=== PATIENT | female | born 1960 | race Caucasian/White ===

== ENCOUNTER 2019-02-02 04:37 | Emergency (ER) | payer MEDICARE ==
--- NOTE | 2019-02-02 05:25 | EDM.PDOC ---
ED HPI GENERAL MEDICAL PROBLEM - General Chief Complaint: Lower Extremity Injury/Pain Stated Complaint: LLE INJURY Time Seen by Provider: 02/02/19 05:10 Source of Information: Reports: Patient History Limitations: Reports: No Limitations - History of Present Illness INITIAL COMMENTS - FREE TEXT/NARRATIVE: States that she lost her balance when she got up to the bathroom this morning. She has pain in the lateral ankle. It is swollen on the lateral malleolus. Denies any foot pain. Onset: Sudden Location: Reports: Lower Extremity, Left Quality: Reports: Sharp Left Lower Leg Pain Score (Numeric/FACES): 5 - Related Data Allergies Allergy/AdvReac Type Severity Reaction Status Date / Time No Known Allergies Allergy Verified 02/02/19 05:06 Home Meds: Home Meds . [Unable to Verify Home Med List] 02/02/19 [History] Past Medical History Cardiovascular History: Reports: High Cholesterol, Hypertension Respiratory History: Reports: COPD Psychiatric History: Reports: Anxiety, Depression Endocrine/Metabolic History: Reports: Diabetes, Type II Social & Family History - Tobacco Use Smoking Status *Q: Current Every Day Smoker Years of Tobacco use: 40 Packs/Tins Daily: 1 - Caffeine Use Caffeine Use: Reports: Coffee - Recreational Drug Use Recreational Drug Use: No Review of Systems - Review of Systems Review Of Systems: See Below Musculoskeletal: Reports: Joint Swelling ED EXAM, GENERAL - Physical Exam Exam: See Below Extremities: Other (tender to the lateral malleolus. No tenderness to foot. good pulses distally. ) Psychiatric: Normal Affect Skin Exam: Warm, Dry, Intact Course - Vital Signs Last Recorded V/S: Last Vital Signs Temp 97.4 F 02/02/19 04:38 Pulse 85 02/02/19 04:38 Resp 20 02/02/19 04:38 BP 108/63 02/02/19 04:38 Pulse Ox 93 L 02/02/19 04:38 - Orders/Labs/Meds Orders: Active Orders 24 hr Category Date Time Status Ankle Min 3V Lt [CR] Stat Exams 02/02/19 04:51 Taken Departure - Departure Time of Disposition: 05:23 Disposition: Home, Self-Care 01 Condition: Good Clinical Impression: Ankle sprain Qualifiers: Encounter type: initial encounter Involved ligament of ankle: unspecified ligament Laterality: left Qualified Code(s): S93.402A - Sprain of unspecified ligament of left ankle, initial encounter - Discharge Information *PRESCRIPTION DRUG MONITORING PROGRAM REVIEWED*: Not Applicable *COPY OF PRESCRIPTION DRUG MONITORING REPORT IN PATIENT ALEXX: Not Applicable Instructions: Ankle Sprain Referrals: Shameka Galindo PA [Primary Care Provider] - Forms: ED Department Discharge Additional Instructions: Ice to ankle weight bearing as tolerated tylenol or advil as needed for discomfort elevate to decrease swelling - Problem List & Annotations (1) Ankle pain SNOMED Code(s): 906533173 Code(s): M25.579 - PAIN IN UNSPECIFIED ANKLE AND JOINTS OF UNSPECIFIED FOOT Status: Acute Priority: High Onset Date: 03/12/14 (2) Ankle sprain SNOMED Code(s): 05072147 Code(s): S93.409A - SPRAIN OF UNSP LIGAMENT OF UNSPECIFIED ANKLE, INIT ENCNTR Status: Acute Priority: High Qualifiers: Encounter type: initial encounter Involved ligament of ankle: unspecified ligament Laterality: left Qualified Code(s): S93.402A - Sprain of unspecified ligament of left ankle, initial encounter - Problem List Review Problem List Initiated/Reviewed/Updated: Yes - My Orders Last 24 Hours: My Active Orders 02/02/19 04:51 Ankle Min 3V Lt [CR] Stat - Assessment/Plan Last 24 Hours: My Active Orders 02/02/19 04:51 Ankle Min 3V Lt [CR] Stat
== END 2019-02-02 05:32 | disposition home or self-care (01) ==
LOC: CC.ED 04:37
DX: S93.402A Sprain of unspecified ligament of left ankle, initial encounter (principal); F17.210 Nicotine dependence, cigarettes, uncomplicated; I10 Essential (primary) hypertension; E11.9 Type 2 diabetes mellitus without complications; W19.XXXA Unspecified fall, initial encounter; Y92.002 Bathroom of unspecified non-institutional (private) residence as the place of occurrence of the external cause
CPT/HCPCS: 73610-LT; 99283; 99283-25

== ENCOUNTER 2022-01-30 16:22 | Emergency (ER) | payer MEDICARE, OTHER, MEDICAID | END 2022-01-30 18:13 | disposition home or self-care (01) | LOC: CC.ED 16:22 | DX: S63.91XA Sprain of unspecified part of right wrist and hand, initial encounter (principal); F17.210 Nicotine dependence, cigarettes, uncomplicated; I10 Essential (primary) hypertension; E11.9 Type 2 diabetes mellitus without complications; F41.9 Anxiety disorder, unspecified; F32.A Depression, unspecified; E78.00 Pure hypercholesterolemia, unspecified; W07.XXXA Fall from chair, initial encounter | CPT/HCPCS: 73110-RT; 73130-RT; 99283 ==

== ENCOUNTER 2024-07-03 12:35 | Inpatient (IN) | payer MEDICARE ==
[2024-07-03] MEDS: Naloxone 2 MG/2 ML Syringe IVPUSH ONE ×3 (12:40→14:20)
[2024-07-03] MEDS: Albuterol/Ipratropium 3.0-0.5 MG/3 ML Neb Soln NEB ONE (12:45)
[2024-07-03] MEDS: Sodium Chloride 0.9% 1,000 ML IV ONE (12:45)
[2024-07-03 12:50] LABS: BASOPHILS ABSOLUTE AUTO 0.01 10^3/uL (0.00-0.50); BASOPHILS PERCENT AUTO 0.1 % (0-1); HEMOGLOBIN 13.2 g/dL (12.0-16.0); IMMATURE GRAN ABSOLUTE AUTO 0.13 10^3/uL (0.00-0.49); IMMATURE GRAN PERCENT AUTO 1.1 % (0.0-4.9); LYMPHOCYTES ABSOLUTE AUTO 1.17 10^3/uL (0.60-5.00); LYMPHOCYTES PERCENT AUTO 9.5 % (24-44); MEAN CORPUSCULAR HEMOGLOBIN 27.8 pg (27.0-32.0); MEAN CORPUSCULAR VOLUME 92.8 fL (83.0-97.0); MONOCYTES ABSOLUTE AUTO 0.89 10^3/uL (0.00-1.50); MONOCYTES PERCENT AUTO 7.3 % (0-10); NEUTROPHILS ABSOLUTE AUTO 10.06 x10^3/uL (1.80-8.00); PLATELET COUNT,PLT 349 10^3/uL (150-400); RED BLOOD CELL COUNT 4.74 x10^6/uL (4.00-5.50); WHITE BLOOD CELL COUNT,WBC 12.3 10^3/uL (4.0-11.0)
[2024-07-03 13:18] LABS: ALANINE AMINOTRANSFERASE,ALT 61 U/L (12-78); ALBUMIN 4.1 g/dL (3.4-5.0); ALKALINE PHOSPHATASE 60 U/L (46-116); ASPARTATE AMNIOTRANSFERASE,AST 91 U/L (15-37); BILIRUBIN TOTAL 0.3 mg/dL (0.0-1.0); BLOOD UREA NITROGEN,BUN 34 mg/dL (7-18); CALCIUM 9.6 mg/dL (8.4-10.1); CARBON DIOXIDE,CO2 29 mmol/L (21-32); CHLORIDE,CL 101 mEq/L (98-106); CREATININE 1.9 mg/dL (0.6-1.0); LIPASE 29 U/L (16-77); MAGNESIUM 1.6 mg/dL (1.8-2.4); POTASSIUM,K 6.1 mEq/L (3.5-5.0); PROTEIN TOTAL,TP 7.9 g/dL (6.4-8.2); SODIUM,NA 139 mEq/L (136-145)
[2024-07-03 13:19] LABS: ESTIMATED GFR 29 mL/min (>=60); GLUCOSE RANDOM 338 mg/dL (75-99)
[2024-07-03 13:40] LABS: C-REACTIVE PROTEIN 2.39 mg/dL (<=0.50); CREATINE KINASE,CK 2658 U/L (21-215); ETHANOL BLOOD MEDICAL < 3 mg/dL (0-3)
[2024-07-03 13:43] LABS: O2 DELIVERY DEVICE NON REBR MASK; O2 SATURATION ARTERIAL 91 % (95-98); PCO2 ARTERIAL 63 mm/Hg0 (35-45); PH,ARTERIAL 7.21 (7.35-7.45); PO2 ARTERIAL 76 mm/Hg (80-100)
[2024-07-03 13:44] LABS: BASE EXCESS ARTERIAL -2.5 (-2.0-3.0); BICARBONATE,ARTERIAL 25.3 mm/L (22.0-26.0)
[2024-07-03] MEDS: Lactated Ringers 1,000 ML IV ONE ×2 (13:57→19:45)
[2024-07-03 14:05] LABS: APPEARANCE,URINE CLEAR (CLEAR); BILIRUBIN,URINE NEGATIVE (NEGATIVE); COLOR,URINE LIGHT YELLOW (YELLOW); GLUCOSE,URINE 500 mg/dL (NEGATIVE); KETONES,URINE NEGATIVE (NEGATIVE); LEUKOCYTE ESTERASE,URINE NEGATIVE (NEGATIVE); NITRITE,URINE NEGATIVE (NEGATIVE); OCCULT BLOOD,URINE SMALL (NEGATIVE); PH,URINE 5.5 (4.5-8.0); PROTEIN,URINE NEGATIVE (NEGATIVE); UROBILINOGEN,URINE 0.2 EU/dL (0.2-1.0)
[2024-07-03] MEDS: Sodium Chloride 0.9% 1,000 ML ONE (14:05)
[2024-07-03 14:07] LABS: AMPHETAMINES,URINE NEGATIVE (NEGATIVE); BARBITURATES,URINE NEGATIVE (NEGATIVE); BENZODIAZEPINE,URINE POSITIVE (NEGATIVE); MDMA (ECSTASY), URINE NEGATIVE (NEGATIVE); METHADONE,URINE NEGATIVE (NEGATIVE); METHAMPHETAMINES,URINE NEGATIVE (NEGATIVE); OPIATES,URINE POSITIVE (NEGATIVE); OXYCODONE,URINE NEGATIVE (NEGATIVE); PHENCYCLIDINE,URINE NEGATIVE (NEGATIVE); TCA,URINE NEGATIVE (NEGATIVE)
[2024-07-03 14:12] LABS: BACTERIA,URINE RARE /HPF (NOT SEEN); EPITHELIAL CELLS,URINE NOT SEEN /HPF (NOT SEEN); MUCUS,URINE RARE /HPF (NOT SEEN); RBC,URINE 0-5 /HPF (0-5); WBC,URINE 0-5 /HPF (0-5)
[2024-07-03] MEDS: Piperacillin/Tazobactam 4.5 GM in Sodium Chloride 0.9% 100 ML IV ONE (14:12)
[2024-07-03] MEDS: Albuterol/Ipratropium 3.0-0.5 MG/3 ML Neb Soln ONE (14:13)
[2024-07-03] MEDS: Albuterol 0.083% 2.5 MG/3 ML Neb Soln NEB ONE (14:33)
[2024-07-03] MEDS: methylPREDNISolone Sodium Succinate 125 MG/2 ML SDV IVPUSH STA (14:35)
[2024-07-03] MEDS: VANCOmycin 2 GM/400 ML 2 GM in Premix Bag 1 BAG IV ONE (14:42)
[2024-07-03] MEDS ORDERED: Acetaminophen 650 MG Supp RECTAL PRN (16:51)
[2024-07-03] MEDS ORDERED: Docusate Sodium 100 MG Cap PO PRN (16:51)
[2024-07-03] MEDS ORDERED: Polyethylene Glycol 3350 Powder 17 GM Packet PO PRN (16:51)
[2024-07-03] MEDS ORDERED: Ondansetron 4 MG/2 ML SDV IV PRN (16:51)
[2024-07-03] MEDS ORDERED: Acetaminophen 325 MG Tab PO PRN (16:51)
[2024-07-03] MEDS ORDERED: Ondansetron 4 MG Tab.DIS PO PRN (16:51)
[2024-07-03 18:14] LABS: O2 DELIVERY DEVICE BIPAP; PCO2 ARTERIAL 52 mm/Hg0 (35-45); PH,ARTERIAL 7.28 (7.35-7.45)
[2024-07-03 18:15] LABS: BASE EXCESS ARTERIAL -2.3 (-2.0-3.0); BICARBONATE,ARTERIAL 24.4 mm/L (22.0-26.0); O2 SATURATION ARTERIAL 79 % (95-98); PO2 ARTERIAL 49 mm/Hg (80-100)
[2024-07-03 18:24] LABS: CALCIUM 9.4 mg/dL (8.4-10.1); CREATININE 1.6 mg/dL (0.6-1.0); EST CRCL DRUG DOSING (CG) 33.25 mL/min; POTASSIUM,K 5.5 mEq/L (3.5-5.0)
[2024-07-03] MEDS: Sodium Chloride 0.9% 1,000 ML IV SCH (18:52)
[2024-07-03] MEDS: Piperacillin/Tazobactam 4.5 GM in Sodium Chloride 0.9% 100 ML IV SCH (18:59)
[2024-07-03] MEDS: Albuterol 0.083% 2.5 MG/3 ML Neb Soln NEB PRN (19:04)
[2024-07-03] MEDS: Albuterol/Ipratropium 3.0-0.5 MG/3 ML Neb Soln NEB SCH (19:38)
[2024-07-03] MEDS: Furosemide 40 MG/4 ML VIAL IVPUSH ONE (19:45)
[2024-07-03] MEDS: LORazepam 2 MG/ML SDV IVPUSH ONE ×2 (20:36→23:37)
[2024-07-03] MEDS: Metoprolol Succinate 100 MG Tab.ER PO ONE (22:04)
[2024-07-03] MEDS: diphenhydrAMINE 50 MG/ML SDV IVPUSH ONE (23:37)
[2024-07-04] MEDS: Haloperidol Lactate 5 MG/ML SDV IVPUSH STA (00:56)
[2024-07-04] MEDS: OLANZapine 10 MG Vial IM STA (04:25)
[2024-07-04] MEDS: methylPREDNISolone Sodium Succinate 40 MG/1 ML SDV IVPUSH SCH (07:58)
[2024-07-04 10:06] LABS: HEMATOCRIT 42.5 % (37.0-47.0); HEMOGLOBIN 13.6 g/dL (12.0-16.0); IMMATURE GRAN ABSOLUTE AUTO 0.05 10^3/uL (0.00-0.49); IMMATURE GRAN PERCENT AUTO 0.3 % (0.0-4.9); LYMPHOCYTES ABSOLUTE AUTO 0.82 10^3/uL (0.60-5.00); LYMPHOCYTES PERCENT AUTO 4.6 % (24-44); MEAN CORPUSCULAR HEMOGLOBIN 27.7 pg (27.0-32.0); MEAN CORPUSCULAR VOLUME 86.6 fL (83.0-97.0); MONOCYTES ABSOLUTE AUTO 1.12 10^3/uL (0.00-1.50); MONOCYTES PERCENT AUTO 6.3 % (0-10); NEUTROPHILS ABSOLUTE AUTO 15.84 x10^3/uL (1.80-8.00); NEUTROPHILS PERCENT AUTO 88.8 % (41-71); PLATELET COUNT,PLT 344 10^3/uL (150-400); RED BLOOD CELL COUNT 4.91 x10^6/uL (4.00-5.50); WHITE BLOOD CELL COUNT,WBC 17.8 10^3/uL (4.0-11.0)
[2024-07-04 10:40] LABS: CALCIUM 9.8 mg/dL (8.4-10.1); CREATININE 1.8 mg/dL (0.6-1.0); EST CRCL DRUG DOSING (CG) 29.56 mL/min; MAGNESIUM 1.2 mg/dL (1.8-2.4); POTASSIUM,K 4.4 mEq/L (3.5-5.0)
[2024-07-04] MEDS: Metoprolol Succinate 100 MG Tab.ER PO SCH (11:08)
[2024-07-04] MEDS: Losartan 100 MG Tab PO SCH (11:09)
[2024-07-04] MEDS: Hydrochlorothiazide 25 MG Tab PO SCH (11:09)
[2024-07-04] MEDS: Nicotine 21 MG/24 Hr Patch TRDERM ONE (12:33)
[2024-07-04] MEDS: Pantoprazole 40 MG Vial IVPUSH SCH (12:42)
[2024-07-04] MEDS: Sodium Chloride 0.9% 1,000 ML IV SCH ×2 (12:47→22:12)
[2024-07-04] MEDS: Magnesium Sulfate/Water Premix 2 GM in Premix Bag 1 BAG IV ONE (12:57)
[2024-07-04] MEDS: OLANZapine 10 MG Vial IM PRN (13:53)
[2024-07-04] MEDS: VANCOmycin 1 GM/200 ML 1 GM in Premix Bag 1 BAG IV SCH (14:07)
[2024-07-04] MEDS: Enoxaparin 40 MG/0.4 ML Syringe SUBCUT SCH (14:11)
[2024-07-04] MEDS ORDERED: Glucagon,Human Recombinant 1 MG Vial IM PRN (14:22)
[2024-07-04] MEDS ORDERED: 50% Dextrose in Water 50 ML Syringe IVPUSH PRN (14:22)
[2024-07-04] MEDS: LORazepam 2 MG/ML SDV IVPUSH PRN (16:05)
[2024-07-04] MEDS ORDERED: buPROPion 150 MG Tab.ER PO SCH (16:30)
[2024-07-04] MEDS ORDERED: Insulin NPH/Insulin Regular,Human 70-30 100 Units/ML 10 ML Vial SUBCUT SCH (17:00)
[2024-07-04] MEDS: Insulin Regular, Human 100 Units/ML 10 ML Vial SUBCUT SCH (17:37)
[2024-07-04] MEDS: Citalopram 10 MG Tab PO SCH (17:48)
[2024-07-04] MEDS: buPROPion 150 MG Tab.ER PO SCH (17:49)
[2024-07-04] MEDS: Zolpidem 5 MG Tab PO SCH (19:47)
[2024-07-04] MEDS: Water For Injection, Sterile 10 ML SDV INJECT STA (23:06)
[2024-07-05 08:00] LABS: HEMATOCRIT 38.8 % (37.0-47.0); HEMOGLOBIN 12.4 g/dL (12.0-16.0); IMMATURE GRAN ABSOLUTE AUTO 0.05 10^3/uL (0.00-0.49); IMMATURE GRAN PERCENT AUTO 0.3 % (0.0-4.9); LYMPHOCYTES ABSOLUTE AUTO 1.87 10^3/uL (0.60-5.00); LYMPHOCYTES PERCENT AUTO 11.3 % (24-44); MEAN CORPUSCULAR HEMOGLOBIN 27.6 pg (27.0-32.0); MEAN CORPUSCULAR VOLUME 86.2 fL (83.0-97.0); MONOCYTES ABSOLUTE AUTO 1.47 10^3/uL (0.00-1.50); MONOCYTES PERCENT AUTO 8.9 % (0-10); NEUTROPHILS ABSOLUTE AUTO 13.18 x10^3/uL (1.80-8.00); NEUTROPHILS PERCENT AUTO 79.5 % (41-71); PLATELET COUNT,PLT 305 10^3/uL (150-400); WHITE BLOOD CELL COUNT,WBC 16.6 10^3/uL (4.0-11.0)
[2024-07-05 08:37] LABS: ALBUMIN 3.2 g/dL (3.4-5.0); BILIRUBIN TOTAL 0.9 mg/dL (0.0-1.0); CALCIUM 9.7 mg/dL (8.4-10.1); CREATININE 1.6 mg/dL (0.6-1.0); EST CRCL DRUG DOSING (CG) 33.25 mL/min; MAGNESIUM 1.7 mg/dL (1.8-2.4); POTASSIUM,K 4.1 mEq/L (3.5-5.0); PROTEIN TOTAL,TP 7.1 g/dL (6.4-8.2)
[2024-07-05 08:47] LABS: BASE EXCESS ARTERIAL 4.9 (-2.0-3.0); BICARBONATE,ARTERIAL 28.3 mm/L (22.0-26.0); O2 DELIVERY DEVICE HI FLOW NASAL CANNU; O2 SATURATION ARTERIAL 95 % (95-98); PCO2 ARTERIAL 37 mm/Hg0 (35-45); PH,ARTERIAL 7.49 (7.35-7.45); PO2 ARTERIAL 70 mm/Hg (80-100)
[2024-07-06 10:29] LABS: BASOPHILS ABSOLUTE AUTO 0.01 10^3/uL (0.00-0.50); BASOPHILS PERCENT AUTO 0.1 % (0-1); HEMATOCRIT 36.5 % (37.0-47.0); HEMOGLOBIN 11.8 g/dL (12.0-16.0); IMMATURE GRAN ABSOLUTE AUTO 0.07 10^3/uL (0.00-0.49); IMMATURE GRAN PERCENT AUTO 0.5 % (0.0-4.9); LYMPHOCYTES PERCENT AUTO 7.6 % (24-44); MEAN CORPUSCULAR HEMOGLOBIN 27.9 pg (27.0-32.0); MEAN CORPUSCULAR HGB CONC 32.3 g/dL (32.0-36.0); MEAN CORPUSCULAR VOLUME 86.3 fL (83.0-97.0); MONOCYTES ABSOLUTE AUTO 1.05 10^3/uL (0.00-1.50); NEUTROPHILS ABSOLUTE AUTO 10.96 x10^3/uL (1.80-8.00); NEUTROPHILS PERCENT AUTO 83.8 % (41-71); PLATELET COUNT,PLT 297 10^3/uL (150-400); RED BLOOD CELL COUNT 4.23 x10^6/uL (4.00-5.50); WHITE BLOOD CELL COUNT,WBC 13.1 10^3/uL (4.0-11.0)
[2024-07-06 10:42] LABS: ALBUMIN 3.2 g/dL (3.4-5.0); BILIRUBIN TOTAL 0.7 mg/dL (0.0-1.0); C-REACTIVE PROTEIN 12.6 mg/dL (<=0.50); CALCIUM 9.7 mg/dL (8.4-10.1); CREATININE 1.5 mg/dL (0.6-1.0); EST CRCL DRUG DOSING (CG) 35.47 mL/min; POTASSIUM,K 4.5 mEq/L (3.5-5.0); PROTEIN TOTAL,TP 7.2 g/dL (6.4-8.2)
[2024-07-06] MEDS: QUEtiapine 25 MG Tab PO SCH (10:43)
[2024-07-06] MEDS ORDERED: Non-Formulary Medication 1 Each (Dulaglutide [Trulicity] 3 MG/0.5 ML Pen.Injctr) SQ SCH (12:15)
[2024-07-06] MEDS: VANCOmycin 1 GM/200 ML 1 GM in Premix Bag 1 BAG IV SCH (12:19)
[2024-07-07] MEDS: Haloperidol Lactate 5 MG/ML SDV IVPUSH ONE (07:03)
[2024-07-07 07:37] LABS: HEMATOCRIT 36.6 % (37.0-47.0); HEMOGLOBIN 11.8 g/dL (12.0-16.0); IMMATURE GRAN ABSOLUTE AUTO 0.13 10^3/uL (0.00-0.49); IMMATURE GRAN PERCENT AUTO 1.3 % (0.0-4.9); LYMPHOCYTES ABSOLUTE AUTO 0.89 10^3/uL (0.60-5.00); LYMPHOCYTES PERCENT AUTO 8.7 % (24-44); MEAN CORPUSCULAR HEMOGLOBIN 27.8 pg (27.0-32.0); MEAN CORPUSCULAR HGB CONC 32.2 g/dL (32.0-36.0); MEAN CORPUSCULAR VOLUME 86.3 fL (83.0-97.0); MONOCYTES ABSOLUTE AUTO 0.84 10^3/uL (0.00-1.50); MONOCYTES PERCENT AUTO 8.2 % (0-10); NEUTROPHILS ABSOLUTE AUTO 8.38 x10^3/uL (1.80-8.00); NEUTROPHILS PERCENT AUTO 81.8 % (41-71); PLATELET COUNT,PLT 302 10^3/uL (150-400); RED BLOOD CELL COUNT 4.24 x10^6/uL (4.00-5.50); WHITE BLOOD CELL COUNT,WBC 10.2 10^3/uL (4.0-11.0)
[2024-07-07] MEDS: PARoxetine 20 MG Tab PO SCH (07:42)
[2024-07-07 07:51] LABS: ALBUMIN 2.9 g/dL (3.4-5.0); BILIRUBIN TOTAL 0.7 mg/dL (0.0-1.0); C-REACTIVE PROTEIN 7.5 mg/dL (<=0.50); CALCIUM 9.6 mg/dL (8.4-10.1); CREATININE 1.5 mg/dL (0.6-1.0); EST CRCL DRUG DOSING (CG) 35.47 mL/min; POTASSIUM,K 4.1 mEq/L (3.5-5.0)
[2024-07-07] MEDS: Nicotine 21 MG/24 Hr Patch TRDERM SCH (07:54)
== END 2024-07-07 13:30 | disposition swing bed (61) | DRG 871 ==
LOC: CC.ED 12:35 → CC.MS 15:47 → UNDOADMIN 15:54 → CC.MS 15:54
PROVIDERS: ADMIT Nurse Practitioner; ATTEND Nurse Practitioner
DX: R41.82 Altered mental status, unspecified (principal); A41.9 Sepsis, unspecified organism; J18.9 Pneumonia, unspecified organism; J96.02 Acute respiratory failure with hypercapnia; J44.0 Chronic obstructive pulmonary disease with (acute) lower respiratory infection; E87.20 Acidosis, unspecified; M62.82 Rhabdomyolysis; R44.3 Hallucinations, unspecified; Z66 Do not resuscitate; Z51.5 Encounter for palliative care; R45.1 Restlessness and agitation; E87.5 Hyperkalemia; I10 Essential (primary) hypertension; E11.9 Type 2 diabetes mellitus without complications; F41.9 Anxiety disorder, unspecified; F32.A Depression, unspecified; E78.00 Pure hypercholesterolemia, unspecified; Z79.899 Other long term (current) drug therapy
CPT/HCPCS: 36415; 36600; 70450; 71045; 80048; 80053; 80202; 80305-QW; 80307; 81001; 82270; 82550; 82800; 82803; 82947; 83605; 83690; 83735; 84484; 85025; 86140; 87040; 87070; 87205; 87428-QW; 93005; 93010; 94640; 96361; 96365; 96367; 96375; 96376; 99223; 99232; 99233; 99239; 99285-25; A9270-GY; J1200; J1630; J1650; J1940; J2060; J2310; J2359; J2470; J2543; J2919; J3372; J3475; J3490; J7030; J7120; J7613-GY; J7620-GY

== ENCOUNTER 2024-07-07 12:43 | Inpatient (IN) | payer MEDICARE ==
[2024-07-07] MEDS ORDERED: Acetaminophen 650 MG Supp RECTAL PRN (14:34)
[2024-07-07] MEDS ORDERED: Ondansetron 4 MG Tab.DIS PO PRN (14:34)
[2024-07-07] MEDS ORDERED: Docusate Sodium 100 MG Cap PO PRN (14:34)
[2024-07-07] MEDS ORDERED: Ondansetron 4 MG/2 ML SDV IV PRN (14:34)
[2024-07-07] MEDS ORDERED: OLANZapine 10 MG Vial IM PRN (14:34)
[2024-07-07] MEDS ORDERED: Glucagon,Human Recombinant 1 MG Vial IM PRN ×2 (14:34)
[2024-07-07] MEDS ORDERED: 50% Dextrose in Water 50 ML Syringe IVPUSH PRN (14:34)
[2024-07-07] MEDS ORDERED: LORazepam 2 MG/ML SDV IVPUSH PRN (14:34)
[2024-07-07] MEDS ORDERED: Polyethylene Glycol 3350 Powder 17 GM Packet PO PRN (14:34)
[2024-07-07] MEDS ORDERED: Albuterol 0.083% 2.5 MG/3 ML Neb Soln NEB PRN (14:34)
[2024-07-07] MEDS ORDERED: Zolpidem 5 MG Tab PO PRN (14:42)
[2024-07-07] MEDS ORDERED: Haloperidol Lactate 5 MG/ML SDV IVPUSH PRN (14:44)
[2024-07-07] MEDS: Sodium Chloride 0.9% 1,000 ML IV SCH (15:42)
[2024-07-07] MEDS: Albuterol/Ipratropium 3.0-0.5 MG/3 ML Neb Soln NEB SCH (15:43)
[2024-07-07] MEDS: Piperacillin/Tazobactam 4.5 GM in Sodium Chloride 0.9% 100 ML IV SCH (17:35)
[2024-07-07] MEDS: Insulin Regular, Human 100 Units/ML 10 ML Vial SUBCUT SCH (17:50)
[2024-07-07] MEDS: Enoxaparin 40 MG/0.4 ML Syringe SUBCUT SCH (19:36)
[2024-07-07] MEDS: QUEtiapine 25 MG Tab PO SCH (19:36)
[2024-07-07] MEDS ORDERED: Zolpidem 5 MG Tab PO SCH (20:00)
[2024-07-07] MEDS: Oxyquinoline/Emollient 0.3% Oint 4 OZ Canister TOP PRN (21:35)
[2024-07-08] MEDS: VANCOmycin 1 GM/200 ML 1 GM in Premix Bag 1 BAG IV SCH (01:19)
[2024-07-08] MEDS: buPROPion 150 MG Tab.ER PO SCH (07:48)
[2024-07-08] MEDS: Nicotine 21 MG/24 Hr Patch TRDERM SCH (07:48)
[2024-07-08] MEDS: QUEtiapine 100 MG Tab PO SCH (07:49)
[2024-07-08] MEDS: PARoxetine 20 MG Tab PO SCH (07:49)
[2024-07-08] MEDS: Hydrochlorothiazide 25 MG Tab PO SCH (07:49)
[2024-07-08] MEDS: Losartan 100 MG Tab PO SCH (07:50)
[2024-07-08] MEDS: Metoprolol Succinate 100 MG Tab.ER PO SCH (07:50)
[2024-07-08 08:18] LABS: BASOPHILS ABSOLUTE AUTO 0.01 10^3/uL (0.00-0.50); BASOPHILS PERCENT AUTO 0.1 % (0-1); EOSINOPHILS ABSOLUTE AUTO 0.21 10^3/uL (0.00-1.50); EOSINOPHILS PERCENT AUTO 1.9 % (0-6); HEMOGLOBIN 12.9 g/dL (12.0-16.0); IMMATURE GRAN ABSOLUTE AUTO 0.16 10^3/uL (0.00-0.49); IMMATURE GRAN PERCENT AUTO 1.5 % (0.0-4.9); LYMPHOCYTES PERCENT AUTO 21.8 % (24-44); MEAN CORPUSCULAR HEMOGLOBIN 27.3 pg (27.0-32.0); MEAN CORPUSCULAR HGB CONC 31.5 g/dL (32.0-36.0); MEAN CORPUSCULAR VOLUME 86.9 fL (83.0-97.0); MONOCYTES ABSOLUTE AUTO 1.07 10^3/uL (0.00-1.50); MONOCYTES PERCENT AUTO 9.7 % (0-10); NEUTROPHILS ABSOLUTE AUTO 7.18 x10^3/uL (1.80-8.00); PLATELET COUNT,PLT 302 10^3/uL (150-400); RED BLOOD CELL COUNT 4.72 x10^6/uL (4.00-5.50)
[2024-07-08 08:31] LABS: ALBUMIN 2.9 g/dL (3.4-5.0); BILIRUBIN TOTAL 0.4 mg/dL (0.0-1.0); C-REACTIVE PROTEIN 4.37 mg/dL (<=0.50); CALCIUM 9.6 mg/dL (8.4-10.1); CREATININE 1.3 mg/dL (0.6-1.0); EST CRCL DRUG DOSING (CG) 40.93 mL/min; POTASSIUM,K 3.9 mEq/L (3.5-5.0); PROTEIN TOTAL,TP 6.9 g/dL (6.4-8.2)
[2024-07-08] MEDS: Acetaminophen 325 MG Tab PO PRN (09:50)
[2024-07-08] MEDS: Lactobacillus Rhamnosus GG (Probiotic) Cap PO SCH (10:03)
[2024-07-08] MEDS: Pantoprazole 40 MG Vial IVPUSH SCH (12:21)
[2024-07-08] MEDS: Gabapentin 300 MG Cap PO SCH (14:06)
[2024-07-08] MEDS: DULAGLUTIDE 3 MG/0.5 ML SUBCUT SCH (14:23)
[2024-07-09] MEDS: VANCOmycin 1 GM/200 ML 1 GM in Premix Bag 1 BAG IV SCH ×2 (11:51→15:02)
[2024-07-09] MEDS ORDERED: Albuterol/Ipratropium 3.0-0.5 MG/3 ML Neb Soln NEB PRN (15:24)
[2024-07-09] MEDS: Zolpidem 5 MG Tab PO SCH (21:39)
[2024-07-10 07:03] LABS: BASOPHILS ABSOLUTE AUTO 0.02 10^3/uL (0.00-0.50); BASOPHILS PERCENT AUTO 0.1 % (0-1); EOSINOPHILS ABSOLUTE AUTO 0.44 10^3/uL (0.00-1.50); EOSINOPHILS PERCENT AUTO 3.1 % (0-6); HEMATOCRIT 37.5 % (37.0-47.0); HEMOGLOBIN 12.2 g/dL (12.0-16.0); IMMATURE GRAN ABSOLUTE AUTO 0.41 10^3/uL (0.00-0.49); IMMATURE GRAN PERCENT AUTO 2.9 % (0.0-4.9); LYMPHOCYTES ABSOLUTE AUTO 2.68 10^3/uL (0.60-5.00); LYMPHOCYTES PERCENT AUTO 19.1 % (24-44); MEAN CORPUSCULAR HEMOGLOBIN 27.8 pg (27.0-32.0); MEAN CORPUSCULAR HGB CONC 32.5 g/dL (32.0-36.0); MEAN CORPUSCULAR VOLUME 85.4 fL (83.0-97.0); MONOCYTES ABSOLUTE AUTO 1.18 10^3/uL (0.00-1.50); MONOCYTES PERCENT AUTO 8.4 % (0-10); NEUTROPHILS ABSOLUTE AUTO 9.31 x10^3/uL (1.80-8.00); NEUTROPHILS PERCENT AUTO 66.4 % (41-71); PLATELET COUNT,PLT 283 10^3/uL (150-400); RED BLOOD CELL COUNT 4.39 x10^6/uL (4.00-5.50)
[2024-07-10 07:21] LABS: ALBUMIN 2.7 g/dL (3.4-5.0); BILIRUBIN TOTAL 0.5 mg/dL (0.0-1.0); C-REACTIVE PROTEIN 3.24 mg/dL (<=0.50); CALCIUM 9.4 mg/dL (8.4-10.1); CREATININE 1.2 mg/dL (0.6-1.0); EST CRCL DRUG DOSING (CG) 44.34 mL/min; POTASSIUM,K 3.7 mEq/L (3.5-5.0); PROTEIN TOTAL,TP 6.4 g/dL (6.4-8.2)
== END 2024-07-10 13:40 | disposition home or self-care (01) | DRG 194 ==
LOC: CC.MS 12:43 → UNDOADMIN 13:52
PROVIDERS: ADMIT Nurse Practitioner; ATTEND Nurse Practitioner Family
DX: J18.9 Pneumonia, unspecified organism (principal); R44.2 Other hallucinations; Z66 Do not resuscitate; Z51.5 Encounter for palliative care; F41.9 Anxiety disorder, unspecified; M19.90 Unspecified osteoarthritis, unspecified site; G89.29 Other chronic pain
CPT/HCPCS: 36415; 80053; 80202; 82947; 85025; 86140; 94640; 97161-GP; 99307; 99315; A9270-GY; J1650; J2470; J2543; J3372; J3490; J7030; J7620-GY

== ENCOUNTER 2024-08-19 10:36 | Observation (INO) | payer MEDICARE ==
[2024-08-19] MEDS: Naloxone 2 MG/2 ML Syringe IVPUSH ONE ×2 (10:45→13:45)
[2024-08-19 11:06] LABS: BASOPHILS ABSOLUTE AUTO 0.02 10^3/uL (0.00-0.50); BASOPHILS PERCENT AUTO 0.1 % (0-1); EOSINOPHILS ABSOLUTE AUTO 0.11 10^3/uL (0.00-1.50); EOSINOPHILS PERCENT AUTO 0.8 % (0-6); HEMATOCRIT 40.6 % (37.0-47.0); HEMOGLOBIN 12.7 g/dL (12.0-16.0); IMMATURE GRAN ABSOLUTE AUTO 0.05 10^3/uL (0.00-0.49); IMMATURE GRAN PERCENT AUTO 0.3 % (0.0-4.9); LYMPHOCYTES PERCENT AUTO 14.5 % (24-44); MEAN CORPUSCULAR HGB CONC 31.3 g/dL (32.0-36.0); MEAN CORPUSCULAR VOLUME 89.4 fL (83.0-97.0); MONOCYTES ABSOLUTE AUTO 1.15 10^3/uL (0.00-1.50); NEUTROPHILS ABSOLUTE AUTO 11.01 x10^3/uL (1.80-8.00); NEUTROPHILS PERCENT AUTO 76.3 % (41-71); PLATELET COUNT,PLT 366 10^3/uL (150-400); RED BLOOD CELL COUNT 4.54 x10^6/uL (4.00-5.50); WHITE BLOOD CELL COUNT,WBC 14.4 10^3/uL (4.0-11.0)
[2024-08-19 11:22] LABS: ALBUMIN 3.6 g/dL (3.4-5.0); BILIRUBIN TOTAL 0.3 mg/dL (0.0-1.0); C-REACTIVE PROTEIN 0.6 mg/dL (<=0.50); CALCIUM 9.4 mg/dL (8.4-10.1); CREATININE 1.9 mg/dL (0.6-1.0); EST CRCL DRUG DOSING (CG) 21.49 mL/min; POTASSIUM,K 5.2 mEq/L (3.5-5.0); PROTEIN TOTAL,TP 7.1 g/dL (6.4-8.2)
[2024-08-19 11:56] LABS: APPEARANCE,URINE CLEAR (CLEAR); BILIRUBIN,URINE NEGATIVE (NEGATIVE); COLOR,URINE YELLOW (YELLOW); GLUCOSE,URINE 100 mg/dL (NEGATIVE); KETONES,URINE NEGATIVE (NEGATIVE); LEUKOCYTE ESTERASE,URINE NEGATIVE (NEGATIVE); NITRITE,URINE NEGATIVE (NEGATIVE); OCCULT BLOOD,URINE NEGATIVE (NEGATIVE); PH,URINE 5.5 (4.5-8.0); PROTEIN,URINE NEGATIVE (NEGATIVE); UROBILINOGEN,URINE 0.2 EU/dL (0.2-1.0)
[2024-08-19 12:01] LABS: AMPHETAMINES,URINE NEGATIVE (NEGATIVE); BARBITURATES,URINE NEGATIVE (NEGATIVE); BENZODIAZEPINE,URINE POSITIVE (NEGATIVE); MDMA (ECSTASY), URINE NEGATIVE (NEGATIVE); METHADONE,URINE NEGATIVE (NEGATIVE); METHAMPHETAMINES,URINE NEGATIVE (NEGATIVE); OPIATES,URINE POSITIVE (NEGATIVE); OXYCODONE,URINE NEGATIVE (NEGATIVE); PHENCYCLIDINE,URINE NEGATIVE (NEGATIVE); TCA,URINE NEGATIVE (NEGATIVE)
[2024-08-19] MEDS: Sodium Chloride 0.9% 1,000 ML IV ONE (12:01)
[2024-08-19] MEDS: Sodium Chloride 0.9% 1,000 ML IV SCH (13:46)
[2024-08-19] MEDS: Flumazenil 0.1 MG/ML 10 ML MDV ONE (13:47)
[2024-08-19] MEDS: Flumazenil 0.1 MG/ML 5 ML MDV IVPUSH ONE (13:48)
[2024-08-19] MEDS ORDERED: Ondansetron 4 MG Tab.DIS PO PRN (14:36)
[2024-08-19] MEDS ORDERED: Ondansetron 4 MG/2 ML SDV IV PRN (14:36)
[2024-08-19] MEDS: Pantoprazole 40 MG Tab.CR PO SCH (19:29)
[2024-08-19] MEDS: Gabapentin 300 MG Cap PO SCH (19:29)
[2024-08-20 07:28] LABS: ALBUMIN 3.1 g/dL (3.4-5.0); BILIRUBIN TOTAL 0.3 mg/dL (0.0-1.0); C-REACTIVE PROTEIN 3.27 mg/dL (<=0.50); CALCIUM 8.9 mg/dL (8.4-10.1); CREATININE 1.1 mg/dL (0.6-1.0); EST CRCL DRUG DOSING (CG) 48.37 mL/min; POTASSIUM,K 4.4 mEq/L (3.5-5.0); PROTEIN TOTAL,TP 6.3 g/dL (6.4-8.2)
[2024-08-20 07:30] LABS: BASOPHILS ABSOLUTE AUTO 0.03 10^3/uL (0.00-0.50); BASOPHILS PERCENT AUTO 0.4 % (0-1); EOSINOPHILS ABSOLUTE AUTO 0.13 10^3/uL (0.00-1.50); EOSINOPHILS PERCENT AUTO 1.6 % (0-6); HEMATOCRIT 37.6 % (37.0-47.0); HEMOGLOBIN 11.8 g/dL (12.0-16.0); IMMATURE GRAN ABSOLUTE AUTO 0.03 10^3/uL (0.00-0.49); IMMATURE GRAN PERCENT AUTO 0.4 % (0.0-4.9); LYMPHOCYTES ABSOLUTE AUTO 2.51 10^3/uL (0.60-5.00); LYMPHOCYTES PERCENT AUTO 30.6 % (24-44); MEAN CORPUSCULAR HEMOGLOBIN 28.1 pg (27.0-32.0); MEAN CORPUSCULAR HGB CONC 31.4 g/dL (32.0-36.0); MEAN CORPUSCULAR VOLUME 89.5 fL (83.0-97.0); MONOCYTES ABSOLUTE AUTO 0.77 10^3/uL (0.00-1.50); MONOCYTES PERCENT AUTO 9.4 % (0-10); NEUTROPHILS ABSOLUTE AUTO 4.73 x10^3/uL (1.80-8.00); NEUTROPHILS PERCENT AUTO 57.6 % (41-71); PLATELET COUNT,PLT 327 10^3/uL (150-400); WHITE BLOOD CELL COUNT,WBC 8.2 10^3/uL (4.0-11.0)
[2024-08-20] MEDS: Losartan 100 MG Tab PO SCH (07:37)
[2024-08-20] MEDS: buPROPion 150 MG Tab.ER PO SCH (07:37)
[2024-08-20] MEDS: Fenofibrate 160 MG Tab PO SCH (07:37)
[2024-08-20] MEDS: Metoprolol Succinate 100 MG Tab.ER PO SCH (07:37)
[2024-08-20] MEDS: Hydrochlorothiazide 25 MG Tab PO SCH (07:38)
[2024-08-20] MEDS: Rosuvastatin 10 MG Tab PO SCH (07:38)
[2024-08-20 07:39] VITALS: BP 146/64; PULSE 91
[2024-08-20] MEDS: Acetaminophen 325 MG Tab PO PRN (08:24)
[2024-08-20] MEDS ORDERED: Enoxaparin 30 MG/0.3 ML Syringe SUBCUT SCH (12:00)
== END 2024-08-20 12:25 | disposition home or self-care (01) ==
LOC: CC.ED 10:36 → CC.MS 14:20 → UNDOADMOB 14:26 → CC.MS 14:26
PROVIDERS: ADMIT Physician Assistant Medical; ATTEND Physician Assistant Medical
DX: T42.4X1A Poisoning by benzodiazepines, accidental (unintentional), initial encounter (principal); R41.82 Altered mental status, unspecified; I10 Essential (primary) hypertension; E11.9 Type 2 diabetes mellitus without complications; J44.9 Chronic obstructive pulmonary disease, unspecified; E78.00 Pure hypercholesterolemia, unspecified; F32.A Depression, unspecified; F41.9 Anxiety disorder, unspecified; Z87.891 Personal history of nicotine dependence; Z79.899 Other long term (current) drug therapy
CPT/HCPCS: 36415; 70450; 71045; 80053; 80305-QW; 81003; 82947; 83605; 84484; 85025; 86140; 87040; 93005; 93010; 96361; 96374; 96375; 96376; 99223; 99238; 99285-25; A9270-GY; J2310; J3490; J7030